=== PATIENT | female | born 1935 | race Caucasian/White ===

== ENCOUNTER 2021-07-27 16:34 | Inpatient (IN) | payer MEDICARE, OTHER ==
[~2021-07-27] VITALS: Ht 160 cm; Wt 66.9 kg
[2021-07-27 18:12] LABS: BASOPHIL 0.7 % (0-2); EOSINOPHIL 0.3 % (0-7); HCT 39.7 % (37.0-47.0); HGB 13.4 g/dl (12.5-16.0); LYMPHOCYTE 7.1 % (15-48); MCH 29.6 pg (25.0-31.0); MCHC 33.8 g/dL (32.0-36.0); MCV 87.8 fL (78.0-100.0); MPV 10.8 fL (6.0-9.5); NEUTROPHIL 86.6 % (41-80); NRBC 0; PLT 215 K/uL (150-400); RBC 4.52 M/uL (4.20-5.40); RDW 13.2 % (11.5-14.0); WBC 12.1 K/uL (4.0-10.5)
[2021-07-27 18:39] LABS: INR 0.97 (0.9-1.2); PROTHROMBIN TIME 12.3 SECONDS (11.8-13.4); PTT 26.6 SECONDS (24.4-34.7)
[2021-07-27 18:41] LABS: LACTIC ACID 1.2 mmol/L (0.4-1.9)
[2021-07-27 18:52] LABS: BILIRUBIN NEGATIVE (NEGATIVE); BLOOD NEGATIVE Ery/uL (NEGATIVE); CLARITY CLEAR (CLEAR); COLOR YELLOW (YELLOW); GLUCOSE (U) NORMAL (NORMAL); LEUKOCYTES NEGATIVE Leu/uL (NEGATIVE); NITRITE NEGATIVE (NEGATIVE); PROTEIN NEGATIVE (NEGATIVE); SPECIFIC GRAVITY 1.015 (1.001-1.030); UROBILINOGEN 0.2 mg/dL (0.2-1.0)
[2021-07-27 19:03] LABS: ALBUMIN 3.9 g/dL (3.4-5.0); ALKALINE PHOSHATASE 76 U/L (46-116); ALT 31 U/L (14-59); AST 26 U/L (15-37); BILIRUBIN - TOTAL 0.4 mg/dL (0.2-1.0); BUN 27 mg/dL (7-18); BUN/CREAT RATIO (CALC) 15.2 RATIO; CHLORIDE 98 mmol/L (98-107); CO2 (BICARBONATE) 27 mmol/L (21-32); CREATININE 1.78 mg/dL (0.51-0.95); GLOBULIN (CALCULATION) 3.4 g/dL; GLUCOSE 243 mg/dL (74-106); LDH 312 U/L (81-234); MAGNESIUM 1.7 mg/dL (1.8-2.4); POTASSIUM 3.5 mmol/L (3.5-5.1); TOTAL PROTEIN 7.3 g/dL (6.4-8.2)
[2021-07-27 19:04] LABS: C-REACTIVE PROTEIN < 0.20 mg/dL (<=0.90)
[2021-07-27] MEDS ORDERED: PRAVACHOL20 MG PO (23:31)
[2021-07-27] MEDS ORDERED: NORVASC2.5 MG PO (23:31)
[2021-07-27] MEDS ORDERED: ALLOPURINOL100 MG PO (23:31)
[2021-07-27] MEDS ORDERED: LEVEMIR VI100 UNITS/ SC (23:32)
[2021-07-27] MEDS ORDERED: HYDRALAZINE25 MG PO (23:32)
[2021-07-27] MEDS ORDERED: SYNTHROID75 MCG PO (23:33)
[2021-07-27] MEDS ORDERED: GLUCOTROL5 MG PO (23:33)
[2021-07-27] MEDS ORDERED: HCTZ25 MG PO (23:35)
[2021-07-27] MEDS ORDERED: VITAMIN D250 MCG PO (23:35)
[2021-07-27] MEDS ORDERED: KLOR-CON M2020 MEQ PO (23:36)
[2021-07-27] MEDS ORDERED: LASIX20 MG PO (23:36)
[2021-07-27] MEDS ORDERED: BACLOFEN 10MG T10 MG PO (23:37)
[2021-07-27] MEDS ORDERED: ASPIRIN EC81 MG PO (23:37)
[2021-07-28 05:55] LABS: BASOPHIL 0.7 % (0-2); EOSINOPHIL 1.6 % (0-7); HGB 11.4 g/dl (12.5-16.0); LYMPHOCYTE 15.5 % (15-48); MCH 29.8 pg (25.0-31.0); MCHC 33.5 g/dL (32.0-36.0); MONOCYTE 9.7 % (0-12); MPV 10.9 fL (6.0-9.5); NEUTROPHIL 72.1 % (41-80); NRBC 0; PLT 201 K/uL (150-400); RBC 3.82 M/uL (4.20-5.40); RDW 13.2 % (11.5-14.0)
[2021-07-28 06:20] LABS: BUN/CREAT RATIO (CALC) 17.7 RATIO; CREATININE 1.64 mg/dL (0.51-0.95); POTASSIUM 3.5 mmol/L (3.5-5.1)
[2021-07-28 19:03] LABS: BUN/CREAT RATIO (CALC) 14.7 RATIO; CREATININE 1.9 mg/dL (0.51-0.95); POTASSIUM 3.9 mmol/L (3.5-5.1)
[2021-07-29 06:07] LABS: BASOPHIL 1.3 % (0-2); EOSINOPHIL 4.8 % (0-7); HCT 33.5 % (37.0-47.0); LYMPHOCYTE 21.5 % (15-48); MCH 29.6 pg (25.0-31.0); MCHC 32.8 g/dL (32.0-36.0); MCV 90.1 fL (78.0-100.0); MONOCYTE 9.7 % (0-12); MPV 10.9 fL (6.0-9.5); NEUTROPHIL 62.3 % (41-80); NRBC 0; PLT 190 K/uL (150-400); RBC 3.72 M/uL (4.20-5.40); RDW 13.1 % (11.5-14.0); WBC 5.6 K/uL (4.0-10.5)
[2021-07-29 06:39] LABS: BUN/CREAT RATIO (CALC) 16.1 RATIO; CREATININE 1.61 mg/dL (0.51-0.95); MAGNESIUM 2.1 mg/dL (1.8-2.4); POTASSIUM 3.7 mmol/L (3.5-5.1)
--- NOTE | 2021-07-29 15:35 | NUR ---
07/29/21 Ms. Adler lives at home. Her son is in the home. She use a cane for mobility when she leaves the home. She reports her son to assist with home making.
[2021-07-30 06:00] LABS: HCT 31.6 % (37.0-47.0); HGB 10.6 g/dl (12.5-16.0); MCH 30.1 pg (25.0-31.0); MCHC 33.5 g/dL (32.0-36.0); MCV 89.8 fL (78.0-100.0); MPV 10.8 fL (6.0-9.5); RBC 3.52 M/uL (4.20-5.40); RDW 13.1 % (11.5-14.0); WBC 7.4 K/uL (4.0-10.5)
[2021-07-30 06:32] LABS: ALBUMIN 2.8 g/dL (3.4-5.0); BILIRUBIN - TOTAL 0.3 mg/dL (0.2-1.0); BUN/CREAT RATIO (CALC) 15.5 RATIO; CREATININE 1.48 mg/dL (0.51-0.95); GLOBULIN (CALCULATION) 2.9 g/dL; TOTAL PROTEIN 5.7 g/dL (6.4-8.2)
[2021-07-30] MEDS ORDERED: ELIQUIS2.5 MG PO ×2 (14:51→14:54)
[2021-07-30] MEDS ORDERED: HYDRALAZINE25 MG PO ×2 (14:51→14:54)
== END 2021-07-30 16:10 | disposition home or self-care (01) | DRG 282 ==
LOC: FER 16:34 → FTCU 21:14
PROVIDERS: Emergency Medicine; Internal Medicine; Internal Medicine Cardiovascular Disease; Nurse Practitioner; ADMIT Allergy & Immunology Allergy
DX: I48.0 Paroxysmal atrial fibrillation (principal); I21.A1 Myocardial infarction type 2; I49.5 Sick sinus syndrome; Z20.822 Contact with and (suspected) exposure to COVID-19; I12.9 Hypertensive chronic kidney disease with stage 1 through stage 4 chronic kidney disease, or unspecified chronic kidney disease; E11.22 Type 2 diabetes mellitus with diabetic chronic kidney disease; N18.30 Chronic kidney disease, stage 3 unspecified; D50.9 Iron deficiency anemia, unspecified; E78.5 Hyperlipidemia, unspecified; E03.9 Hypothyroidism, unspecified; R79.89 Other specified abnormal findings of blood chemistry; I27.20 Pulmonary hypertension, unspecified; Z90.49 Acquired absence of other specified parts of digestive tract; Z98.890 Other specified postprocedural states; Z98.49 Cataract extraction status, unspecified eye; Z88.0 Allergy status to penicillin; Z88.2 Allergy status to sulfonamides; Z88.6 Allergy status to analgesic agent; Z79.82 Long term (current) use of aspirin; Z79.84 Long term (current) use of oral hypoglycemic drugs; Z79.899 Other long term (current) drug therapy
CPT/HCPCS: 36415; 70450; 71250; 80048; 80053; 80061; 81003; 82728; 82962; 83036; 83540; 83550; 83605; 83615; 83735; 83880; 84439; 84443; 84484; 85025; 85610; 85730; 86140; 93005; 94762; G0378; G0480; J1650; J1815; J2405; J3475; J7050; U0002